=== PATIENT | female | born 1995 | race Caucasian/White ===

== ENCOUNTER 2017-02-05 15:55 | Emergency (ER) | payer SELFPAY ==
[~2017-02-05] VITALS: Ht 162.6 cm; Wt 60.8 kg
[2017-02-05 15:58] VITALS: BP 121/76
[2017-02-05 16:10] LABS: BILIRUBIN,URINE NEGATIVE (NEG); GLUCOSE,URINE NEGATIVE (NEG); NITRITE,URINE NEGATIVE (NEG); PH,URINE 7.5; PROTEIN,URINE NEGATIVE (NEG-TRACE)
--- NOTE | 2017-02-05 16:17 | PHYS DOC ---
Past Medical History Past Medical History: No Pertinent History Past Surgical History: No Surgical History Alcohol Use: Occasionally Drug Use: None Adult General Chief Complaint Chief Complaint: PAIN ON URINATION [facility] HPI Patient is a 21 year old female presents to the emergency department with a four-day history of dysuria. She has mild lower abdominal cramping. No vaginal discharge. Last normal menstrual period was December 28. She states she is not risk for STD. She has no pelvic pain. No fever or flank pain. Review of Systems Review of Systems Constitutional: Denies fever or chills [] Eyes: Denies change in visual acuity, redness, or eye pain [] HENT: Denies nasal congestion or sore throat [] Respiratory: Denies cough or shortness of breath [] Cardiovascular: No additional information not addressed in HPI [] GI: Denies abdominal pain, nausea, vomiting, bloody stools or diarrhea [] : Dysuria Musculoskeletal: Denies back pain or joint pain [] Integument: Denies rash or skin lesions [] Neurologic: Denies headache, focal weakness or sensory changes [] Endocrine: Denies polyuria or polydipsia [] Allergies Allergies Allergies Coded Allergies Type Severity Reaction Last Updated Verified No Known Drug Allergies 02/05/17 No Physical Exam Physical Exam Constitutional: Well developed, well nourished, no acute distress, non-toxic appearance. [] Neck: Normal range of motion, no tenderness, supple, no stridor. [] Cardiovascular:Heart rate regular rhythm, no murmur [] Lungs & Thorax: Bilateral breath sounds clear to auscultation [] Abdomen: Bowel sounds normal, soft, no tenderness, no masses, no pulsatile masses. [] Skin: Warm, dry, no erythema, no rash. [] Back: No tenderness, no CVA tenderness. [] Neurologic: Alert and oriented X 3, normal motor function, normal sensory function, no focal deficits noted. [] Current Patient Data Vital Signs Vital Signs Date Time Temp Pulse Resp B/P (MAP) Pulse Ox O2 Delivery O2 Flow Rate FiO2 02/05/17 15:58 98.3 113 16 121/76 (91) 99 Room Air 98.3 Lab Values Laboratory Tests Test 02/05/17 16:00 02/05/17 16:03 Urine Collection Type Unknown Urine Color Yellow Urine Clarity Clear Urine pH 7.5 Urine Specific Bland 1.025 Urine Protein Negative mg/dL (NEG-TRACE) Urine Glucose (UA) Negative mg/dL (NEG) Urine Ketones (Stick) Negative mg/dL (NEG) Urine Blood Negative (NEG) Urine Nitrite Negative (NEG) Urine Bilirubin Negative (NEG) Urine Urobilinogen Dipstick 1.0 mg/dL (0.2 mg/dL) Urine Leukocyte Esterase Small (NEG) Urine RBC 0 /HPF (0-2) Urine WBC 5-10 /HPF (0-4) Urine Squamous Epithelial Cells Many /LPF Urine Bacteria Moderate /HPF (0-FEW) Urine Mucus Marked /LPF POC Urine HCG, Qualitative Hcg negative (Negative) EKG EKG [] Radiology/Procedures Radiology/Procedures [] Course & Med Decision Making Course & Med Decision Making Pertinent Labs and Imaging studies reviewed. (See chart for details) [] Dragon Disclaimer Dragon Disclaimer This electronic medical record was generated, in whole or in part, using a voice recognition dictation system. Departure Departure Impression: Primary Impression: Urinary tract infection Disposition: HOME, SELF-CARE Condition: STABLE Referrals: NO PCP (PCP) [facility] Patient Instructions: Urinary Tract Infection Scripts Phenazopyridine Hcl (PYRIDIUM) 200 Mg Tablet 200 MG PO TID, #9 TAB Prov: CASSIA LYNN APRN 02/05/17 Sulfamethoxazole/Trimethoprim (BACTRIM DS TABLET) 1 Each Tablet 1 TAB PO BID, #20 TAB Prov: CASSIA LYNN APRN 02/05/17 Problem Qualifiers Primary Impression: Urinary tract infection Urinary tract infection type: acute cystitis Hematuria presence: without hematuria Qualified Codes: N30.00 - Acute cystitis without hematuria CASSIA LYNN APRN Feb 05, 2017 16:17
[2017-02-05 16:19] LABS: BACTERIA,URINE MODERATE /HPF (0-FEW); RBC,URINE 0 /HPF (0-2); SQUAMOUS EPITHELIAL CELL,UR MANY /LPF
[2017-02-05] MEDS ORDERED: PHEN-318 PO (16:26)
[2017-02-05] MEDS ORDERED: SULF1TAB24 PO (16:26)
== END 2017-02-05 16:30 | disposition home or self-care (01) ==
LOC: ER 15:55
DX: N30.00 Acute cystitis without hematuria (principal)
CPT/HCPCS: 81001; 81025; 87086; 99284

== ENCOUNTER 2017-04-01 17:40 | Emergency (ER) | payer SELFPAY ==
[~2017-04-01] VITALS: Ht 162.6 cm; Wt 60.8 kg
[~2017-04-01 17:40] MED LIST: PHEN-318 PO; SULF1TAB24 PO
[2017-04-01 17:45] VITALS: BP 116/75
--- NOTE | 2017-04-01 17:52 | PHYS DOC ---
Past Medical History Past Medical History: No Pertinent History Past Surgical History: No Surgical History Alcohol Use: Occasionally Drug Use: None Adult General Chief Complaint Chief Complaint: SKIN RASH/ABSCESS HPI HPI Patient is a 21 year old female presents the ED complaining of rash to upper lip 3 days. Patient states she tried using a steroid cream on it but it did not improved. States that they are like little pimples that break open and have yellow stuff come out. Denies chest pain, shortness of breath, fever, nausea/ vomiting, history of herpes, weakness or conjunctivitis. Review of Systems Review of Systems Constitutional: Denies fever or chills [] Eyes: Denies change in visual acuity, redness, or eye pain [] HENT: Denies nasal congestion or sore throat [] Respiratory: Denies cough or shortness of breath [] Cardiovascular: No additional information not addressed in HPI [] GI: Denies abdominal pain, nausea, vomiting, bloody stools or diarrhea [] : Denies dysuria or hematuria [] Musculoskeletal: Denies back pain or joint pain [] Integument: Complains of skin rash.[] Neurologic: Denies headache, focal weakness or sensory changes [] Endocrine: Denies polyuria or polydipsia [] All other systems were reviewed and found to be within normal limits, except as documented in this note. Allergies Allergies Allergies Coded Allergies Type Severity Reaction Last Updated Verified No Known Drug Allergies 02/05/17 No Physical Exam Physical Exam Constitutional: Well developed, well nourished, no acute distress, non-toxic appearance. [] HENT: Normocephalic, atraumatic, oropharynx moist Eyes: PERRLA, EOMI, conjunctiva normal, no discharge. [] Skin: Warm, dry, ERYTHEMATOUS TINY LESIONS WITH HONEY COLORED CRUSTING CONSISTENT WITH IMPETIGO. [] Neurologic: Alert and oriented X 3, normal motor function, normal sensory function, no focal deficits noted. [] Psychologic: Affect normal, judgement normal, mood normal. [] Current Patient Data Vital Signs Vital Signs Date Time Temp Pulse Resp B/P (MAP) Pulse Ox O2 Delivery O2 Flow Rate FiO2 04/01/17 17:45 98.2 99 16 98 Room Air 98.2 EKG EKG [] Radiology/Procedures Radiology/Procedures [] Course & Med Decision Making Course & Med Decision Making Pertinent Labs and Imaging studies reviewed. (See chart for details) [] Dragon Disclaimer Dragon Disclaimer This electronic medical record was generated, in whole or in part, using a voice recognition dictation system. Departure Departure Impression: Primary Impression: Impetigo Disposition: HOME, SELF-CARE Condition: IMPROVED Referrals: NO PCP (PCP) CRISTINE LOPEZ MD Patient Instructions: Impetigo Scripts Mupirocin (MUPIROCIN OINTMENT) 22 Gm Oint...g. 1 SANTINO TP TID for WOUND CARE, #1 TUBE Prov: EDWARD LAGUNAS 04/01/17 EDWARD LAGUNAS Apr 01, 2017 17:52
[2017-04-01] MEDS ORDERED: MUPI22OI2 TP (17:57)
== END 2017-04-01 18:04 | disposition home or self-care (01) ==
LOC: ER 17:40
DX: L01.00 Impetigo, unspecified (principal)
CPT/HCPCS: 99283

== ENCOUNTER 2017-05-29 11:01 | Emergency (ER) | payer SELFPAY | END 2017-05-29 12:27 | disposition home or self-care (01) | LOC: ER 11:01 | DX: L25.9 Unspecified contact dermatitis, unspecified cause (principal); L70.9 Acne, unspecified | CPT/HCPCS: 99283 ==